=== PATIENT | female | born 1930 | race Caucasian/White ===

== ENCOUNTER 2017-01-18 06:30 | Observation (INO) | payer OTHER ==
[2017-01-18] MEDS ORDERED: diphenhydrAMINE 25 MG CAP PO ONE (06:45)
[2017-01-18] MEDS ORDERED: ASPIRIN EC 325 MG TAB PO ONE ×2 (06:45→07:01)
[2017-01-18] MEDS ORDERED: NS 1,000 ML IV ONE (06:45)
[2017-01-18] MEDS ORDERED: DIAZEPAM 5 MG TAB PO ONE (06:45)
[2017-01-18] MEDS ORDERED: FAMOTIDINE 20 MG TAB PO ONE (06:45)
--- NOTE | 2017-01-18 06:55 | CPEKG ---
Heart Rate: 81 RR Interval: 741 P-R Interval: 164 QRSD Interval: 148 QT Interval: 424 QTC Interval: 493 P [place]: 0 QRS [place]: 251 T Wave [place]: 124 EKG Severity - ABNORMAL ECG - EKG Impression: ATRIAL-SENSED VENTRICULAR-PACED COMPLEXES (UNIPOLAR PACING) Electronically Signed By: Wilton Velasco 18-Jan-2017 18:44:01
[2017-01-18] MEDS ORDERED: FAMOTIDINE 20 MG TAB ONE (07:01)
[2017-01-18 07:12] LABS: % IMMATURE GRANULYOCYTES 0.3 % (0.0-1.1); ABSOLUTE IMMATURE GRANULOCYTES 0.03 10^3/uL (0.00-0.10); ADD DIFF? NO; ADD MORPH? NO; ADD SCAN? NO; ATYPICAL LYMPHOCYTE FLAG 10 (0-99); FRAGMENT RBC FLAG 0 (0-99); HEMATOCRIT 39.3 % (38.0-47.0); HEMOGLOBIN 13.4 g/dL (12.6-16.3); LEFT SHIFT FLG 0 (0-99); LIPEMIA HEMOLYSIS FLAG 90 (0-99); MEAN CELL HEMOGLOBIN 28.4 pg (27.9-34.1); MEAN CELL HEMOGLOBIN CONCENTR. 34.1 g/dL (32.4-36.7); MEAN CELL VOLUME 83.3 fL (81.5-99.8); MEAN PLATELET VOLUME 9.9 fL (8.7-11.7); PLATELET CLUMPS FLAG 10 (0-99); PLATELET COUNT 256 10^3/uL (150-400); RED BLOOD CELL COUNT 4.72 10^6/uL (4.18-5.33); RED CELL DISTRIBUTION WIDTH 13.6 % (11.5-15.2)
[2017-01-18 07:25] LABS: INR 1.09 (0.83-1.16)
[2017-01-18 07:26] LABS: ANION GAP 7 mEq/L (8-16); CALCIUM 9.3 mg/dL (8.5-10.4); CARBON DIOXIDE 29 mEq/l (22-31); CHLORIDE 98 mEq/L (97-110); CHOLESTEROL 114 mg/dL (140-220); CREATININE 0.6 mg/dL (0.6-1.0); GLOMERULAR FILTRATION RATE > 60; GLUCOSE 105 mg/dL (70-100); HIGH DENSITY LIPOPROTEIN 38 mg/dL (40-85); LDL/HDL RATIO 1.45 RATIO (1.00-3.22); LOW DENSITY LIPOPROTEIN 55 mg/dL (80-100); NON-HIGH DENSITY LIPOPROTEIN 76 mg/dL (90-129); POTASSIUM 3.7 mEq/L (3.5-5.2); SODIUM 134 mEq/L (134-144); TRIGLYCERIDE 108 mg/dL (35-135); VERY LOW DENSITY LIPOPROTEINS 21 mg/dL (8-25)
[2017-01-18] MEDS ORDERED: MIDAZOLAM 2 MG/2 ML VIAL ONE (07:44)
[2017-01-18] MEDS ORDERED: IOPAMIDOL (ISOVUE-370) 150 ML BTL IV ONE ×3 (07:44→09:39)
[2017-01-18] MEDS ORDERED: LIDOCAINE 1% 30 ML SDV ONE (07:44)
[2017-01-18] MEDS ORDERED: fentaNYL 100 MCG/2 ML INJ ONE (07:44)
[2017-01-18] MEDS ORDERED: BIVALIRUDIN 250 MG/5 ML VIAL IV ONE (08:41)
--- NOTE | 2017-01-18 09:50 | PDDXCAT ---
Diagnostic Cath Note - . Date: 01/18/17 Intervention: PTCA and ocgr-[id number] implantation in the mid LAD *Procedure 1. selective coronary angiography 2. PTCA and drug-eluting stent (AURORA) implantation in the mid LAD Indication: I was called for interventional consultation following the identification of a 95% mid LAD lesion that has been previously stented with PHILIPP III flow by Dr. Bryan during diagnostic catheterization. Access: Right femoral artery *Materials Left Heart Cath size: 6F Left Heart Cath materials: CLS3.5, Intuition Guide Wire, 3 x 12 mm Emerge balloon, 2.8 x 16 mm Graftmaster stent, 3 x 28 mm Synergy AURORA, 3.25 x 12 mm NC Emerge balloon. *Findings-Selective Coronary Angiography LAD: The mid LAD is ~3 mm in size. There is a 95% mid LAD in-stent restenosis with PHILIPP III flow. *Intervention A 6 Cuban CCS3.5 guiding catheter was used for guide catheter support. A 0.014 " Intuition Guide Wire was advanced across the mid LAD under direct fluoroscopic and angiographic guidance. As the wire was advanced it exited the vessel at the LAD diagonal junction with associated staining of the muscle. This did not become free flowing into the pericardium. A 3 x 12 mm Emerge balloon was used to pre-dilate the mid LAD lesion in question under a maximum of 15 theodore of pressure with several prolonged inflations. A 3 x 28 mm Synergy AURORA was exchanged for the balloon and successfully deployed under 16 [place]odore of pressure. The stent was removed and a 3.25 x 12 mm NC Emerge Balloon was used to post-dilate the stent several times under a maximum of 18 theodore of pressure. Status post PTCA and stent implantation there were excellent angiographic results with 5% residual stenosis and PHILIPP III flow to the distal vessel. *Summary Complications: There was a wire perforation in the intramuscular layer of the mid LAD upon wire insertion. This was sealed with a series of prolonged balloon inflations. A 2.8 by 16 Graftmaster stent was made ready for use in case the prolonged balloon inflations did not seal the wire perforation. A stat intraoperative echocardiogram was performed with trivial pericardial effusion and no evidence of tamponade physiology. There was no evidence of contrast communication in subsequent angiographic injections. We ultimately decided to use a drug eluting stent in the wire perforation zone: 1. In stent restenosis was the indication for stenting in the first place. 2.) Both the diagonal and septal branches exited from the same region. Use of a covered stent would have closed the side branches and would not have prevented in stent restenosis. Estimated blood loss: <100ml Closure method: Arteriotomy repair Assessment/Conclusion: 1. [place] vessel coronary artery disease including 95% mid LAD in-stent restenosis with PHILIPP III flow. This was repaired with PTCA and drug-eluting- stent implantation as outlined above. There was 5% residual stenosis with PHILIPP III flow angiographically. The patient was placed on Plavix because of the need for Pradaxa given the chronic atrial fibrillation. 2. There was a wire perforation in the intramuscular layer of the mid LAD upon wire insertion. This was successfully sealed with prolonged balloon inflations. Intraoperative echocardiography showed trivial pericardial effusion with no evidence of tamponade. I have ordered limited echocardiogram to be performed in the morning to rule out pericardial effusion prior to the patient's discharge. Patient Problems: Problems Problem Status Onset Closed intratrochanteric fracture of left femur Acute Fall Acute COPD (chronic obstructive pulmonary disease) Acute
[2017-01-18] MEDS ORDERED: CLOPIDOGREL BISULFATE 75 MG TAB ONE ×2 (09:52→09:53)
[2017-01-18] MEDS ORDERED: CLOPIDOGREL BISULFATE 75 MG TAB PO ONE (10:13)
[2017-01-18] MEDS ORDERED: ATROPINE SULFATE 1 MG/10 ML SYR IVP PRN (10:13)
[2017-01-18] MEDS ORDERED: NITROGLYCERIN 0.4 MG BTL SL PRN (10:13)
[2017-01-18] MEDS ORDERED: LORazepam 2 MG/ML INJ IVP PRN (10:13)
[2017-01-18] MEDS ORDERED: TEMAZEPAM 15 MG CAP PO PRN (10:13)
[2017-01-18] MEDS ORDERED: ACETAMINOPHEN 325 MG TAB PO PRN (10:13)
[2017-01-18] MEDS ORDERED: NS 1,000 ML IV SCH (10:15)
--- NOTE | 2017-01-18 10:20 | CPEKG ---
Heart Rate: 70 RR Interval: 857 P-R Interval: 163 QRSD Interval: 154 QT Interval: 336 QTC Interval: 363 P [place]: 81 QRS [place]: -89 T Wave [place]: 133 EKG Severity - ABNORMAL ECG - EKG Impression: ATRIAL-SENSED VENTRICULAR-PACED RHYTHM Electronically Signed By: Wilton Velasco 18-Jan-2017 18:40:39
--- NOTE | 2017-01-18 10:44 | ECHO ---
[id number] + + [address] : : [place] [address] : : [phone] + + Adult Echocardiographic Report + + :Name: Yahir HOFFMANN Date: 01/18/2017 09:51 AM : : Hospital Admission Number: [id number] Bettye n: medical laboratory manager: :: 1930 Gender: Female : :Age: 86 yrs Race: WH,White : :Reason For Study: Eval for pericardial effusion : :History: Cath : + + Left Ventricle Left ventricular systolic function is low normal. Ejection Fraction = 50%%. [place] There is a catheter/pacemaker lead seen in the right atrium. Mitral Valve The mitral valve is normal in structure and function. Tricuspid Valve The tricuspid valve is normal in structure and function. Aortic Valve The aortic valve is trileaflet. Pericardium/Pleural trivial pericardial effusion. Conclusion This is a limited echo to evaluate for pericardial effusion during a heart catherization. trivial pericardial effusion. Left ventricular systolic function is low normal. Ejection Fraction = 50%%. Final Reading Physician: Tom Bryan electronically signed on 01/18/2017 10:43 AM Ordering Physician: Tom Bryan Referring Physician: Wilton Velasco MD Performed By: Frankie Olivia RDCS
--- NOTE | 2017-01-18 11:17 | GOP ---
[f rep st] OPERATIVE REPORT DATE OF OPERATION: 01/18/2017 SURGEON: Tom Bryan MD PREOPERATIVE DIAGNOSIS: POSTOPERATIVE DIAGNOSIS: PROCEDURE PERFORMED: Diagnostic left heart catheterization. FINDINGS: 1. Left main: Normal size and caliber. It bifurcates into the left anterior descending and left c ircumflex coronary artery. 2. Left anterior descending artery: There was evidence of 20% narrowing in the very proximal segme nt of the vessel. Patent stent to the LAD. There was a 90% stenosis just distal to the LAD stent a t the level of the first septal and diagonal branch. There were mild luminal irregularities through out the remainder of the LAD. 3. Circumflex artery demonstrated patent previous proximal circumflex stent. The circumflex vessel was a large-caliber, dominant vessel with a large 1st obtuse marginal branch. There were mild khoa nal irregularities within the circumflex vessel. There was no evidence of flow-limiting coronary di sease. 4. The right coronary artery was a small, nondominant vessel. There were mild luminal irregulariti es in the proximal and midportion of the vessel with no flow-limiting stenosis. 5. Left ventriculogram demonstrated mild anterior wall hypokinesis with an LVEF of approximately 50 %. 6. Right common femoral artery angiography demonstrated high bifurcation off the iliac vessel. No trauma to the iliac vessel. Would not recommend device closure. 1. Hemodynamics: LVEDP 17. No evidence of aortic valve gradient. DESCRIPTION OF PROCEDURE: After informed consent was obtained, the patient was taken to the cardiac catheterization lab where she was prepped and draped in a sterile fashion. Prior to the procedure, I had confirmed with her that she had been off Pradaxa for over 48 hours. Using 1% lidocai ne, the right groin was anesthetized. Using the modified Seldinger technique, a 6-Japanese catheter w as placed in the right common femoral artery without complication. The patient tolerated the proced ure well. There were no postoperative complications. A JL4 catheter was used to take images of the left coronary anatomy in multiple projections. The JL 4 catheter was exchanged over a guidewire for a JR4 catheter. The JR4 catheter was used to take steff ges of the right coronary anatomy in multiple angles. The JR4 catheter was removed over guidewire. An angled pigtail catheter was used to cross the aorti c valve. Left ventriculogram was performed. LVEDP was assessed. Aortic valve gradient was assesse d on pullback. INDICATION FOR PROCEDURE: The patient is an 86-year-old female with known history of coronary arter y disease with previous PCI to the LAD and circumflex vessel, who has been in the office with compla ints of increasing shortness of breath, dyspnea, and exertional intolerance and fatigue. Nuclear st ress test demonstrated anterior as well as inferior ischemia with mildly reduced LVEF of 50%. In th e setting of ongoing symptoms, the decision was made to pursue diagnostic left heart catheterization . CONCLUSION: Severe single-vessel coronary artery disease to the proximal to midportion of the LAD w ith severe side branch disease within the first diagonal branch. PLAN: I reviewed these images with my interventional colleague, Dr. Velasco. We will plan for inter vention to the LAD. /[id number]/MODL
[2017-01-19 04:38] LABS: % IMMATURE GRANULYOCYTES 0.2 % (0.0-1.1); ABSOLUTE IMMATURE GRANULOCYTES 0.02 10^3/uL (0.00-0.10); ADD DIFF? NO; ADD MORPH? NO; ADD SCAN? NO; ATYPICAL LYMPHOCYTE FLAG 0 (0-99); FRAGMENT RBC FLAG 0 (0-99); HEMATOCRIT 36.5 % (38.0-47.0); HEMOGLOBIN 12.2 g/dL (12.6-16.3); LEFT SHIFT FLG 0 (0-99); LIPEMIA HEMOLYSIS FLAG 80 (0-99); MEAN CELL HEMOGLOBIN 28.9 pg (27.9-34.1); MEAN CELL HEMOGLOBIN CONCENTR. 33.4 g/dL (32.4-36.7); MEAN CELL VOLUME 86.5 fL (81.5-99.8); MEAN PLATELET VOLUME 10.4 fL (8.7-11.7); PLATELET CLUMPS FLAG 30 (0-99); PLATELET COUNT 215 10^3/uL (150-400); RED BLOOD CELL COUNT 4.22 10^6/uL (4.18-5.33); RED CELL DISTRIBUTION WIDTH 13.7 % (11.5-15.2)
[2017-01-19 05:47] LABS: ALBUMIN 3.1 g/dL (3.5-5.0); ANION GAP 6 mEq/L (8-16); ASPARTATE AMINOTRANSFERASE 36 IU/L (14-46); BILIRUBIN,TOTAL 0.5 mg/dL (0.1-1.4); CALCIUM 8.8 mg/dL (8.5-10.4); CARBON DIOXIDE 28 mEq/l (22-31); CHLORIDE 98 mEq/L (97-110); CREATININE 0.5 mg/dL (0.6-1.0); GLOMERULAR FILTRATION RATE > 60; GLUCOSE 88 mg/dL (70-100); LACTATE DEHYDROGENASE 576 IU/L (313-618); MAGNESIUM 2.1 mg/dL (1.6-2.3); POTASSIUM 3.9 mEq/L (3.5-5.2); SODIUM 132 mEq/L (134-144)
[2017-01-19 08:25] VITALS: BP 114/60; TEMP 97.7; O2SAT 92
[2017-01-19] MEDS ORDERED: ASPIRIN EC 325 MG TAB PO SCH (09:00)
[2017-01-19] MEDS ORDERED: PANTOPRAZOLE SODIUM 40 MG TAB PO SCH (09:00)
[2017-01-19] MEDS ORDERED: CLOPIDOGREL BISULFATE 75 MG TAB PO SCH (09:00)
--- NOTE | 2017-01-19 09:07 | CPEKG ---
Heart Rate: 78 RR Interval: 769 P-R Interval: 165 QRSD Interval: 170 QT Interval: 410 QTC Interval: 468 P [place]: 86 QRS [place]: 186 T Wave [place]: 110 EKG Severity - ABNORMAL ECG - EKG Impression: ATRIAL-SENSED VENTRICULAR-PACED RHYTHM Electronically Signed By: Wilton Velasco 19-Jan-2017 14:25:49
[2017-01-19] MEDS ORDERED: ALBUTEROL 60 PUFFS/8 GM MDI IH PRN ×2 (09:45→10:04)
[2017-01-19] MEDS ORDERED: FUROSEMIDE 20 MG TAB PO SCH (09:45)
[2017-01-19] MEDS ORDERED: BUDESONIDE/FORMOTEROL 160/4.5 60 PUFFS/MDI IH SCH (09:45)
[2017-01-19] MEDS ORDERED: ATORVASTATIN CALCIUM 20 MG TAB PO SCH (09:45)
[2017-01-19] MEDS ORDERED: ASPIRIN 81 MG CHEWABLE TAB PO SCH (09:45)
[2017-01-19] MEDS ORDERED: NON-FORMULARY NEW DRUG (Omeprazole [Prilosec 20 Mg] 20 MG) PO SCH (09:45)
[2017-01-19] MEDS ORDERED: ERGOCALCIFEROL 50,000 I.UNIT CAP PO SCH ×2 (09:45→10:15)
[2017-01-19 12:00] VITALS: RESP 18
--- NOTE | 2017-01-19 12:36 | PDIAF ---
- Diagnosis Diagnosis: CAD Stent to LAD 01/18/17 Code Status: Full Code - Medication Management Discharge Medications: Medications to Continue on Transfer Albuterol [Proventil Inhaler HFA (*)] 2 puffs IH Q4-6PRN PRN 01/18/17 [Last Taken Unknown] Aspirin [Aspirin 81mg (*)] 81 mg PO DAILY 01/18/17 [Last Taken Unknown] Atorvastatin Calcium [Lipitor 20 mg (*)] 20 mg PO DAILY 01/18/17 [Last Taken Unknown] Budesonide/Formoterol 160/4.5 [Symbicort 160-4.5 Mcg Inh (*)] 1 puffs IH BID 04/29 [Last Taken Unknown] C/E/Zn/Cu/OM3/DHA/EPA/LUT/ZEAX [Preservision Areds 2 Softgel] 1 each PO BID 04/29 [Last Taken Unknown] Cyanocobalamin [Vitamin B12 (*)] 1,000 mcg PO DAILY 01/18/17 [Last Taken Unknown ] Donepezil HCl [Aricept 5 MG (*)] 5 mg PO HS 01/18/17 [Last Taken Unknown] Ergocalciferol [Vitamin D2 (*)] 50,000 unit PO Q7D 01/18/17 [Last Taken Unknown] Furosemide [Lasix 20 MG (*)] 20 mg PO DAILY 01/18/17 [Last Taken Unknown] Omeprazole [Prilosec 20 mg] 20 mg PO DAILY 01/18/17 [Last Taken Unknown] Acetaminophen [Tylenol 325mg (*)] 650 mg PO Q4HRS PRN #0 tab 01/19/17 [Last Taken Unknown] Clopidogrel Bisulfate [Plavix (*)] 75 mg PO DAILY #30 tab 01/19/17 [Last Taken Unknown] Nitroglycerin [Nitrostat 0.4 mg (*)] 0.4 mg SL ONCE PRN #1 btl 01/19/17 [Last Taken Unknown] Discharge Medications: Refer to the Discharge Home Medication list for PRN reason. - Orders Services needed: Home Care (Needs in home PT), Physical Therapy Home Care Face to Face: I certify that this patient was under my care and that I had the required [id number] encounter meeting the encounter requirements on the discharge day. My findings support the fact that the patient is homebound as defined in CMS Chapter 7 Medicare Benefits Manual 30.1.1, The condition of the patient is such that there exists a normal inability to leave home and consequently, leaving home would require a considerable and taxing effort. Diet Recommendation: cardiac -low fat low salt Diet Texture: Regular Texture Diet Additional: Right Groin cath site precautions. See Written Home Instructions sheet. No heavy lifting, pushing, or pulling greater than 10 pounds for one week. Dressing can come off this evening in shower. No ointments or dressing to site. Keep site clean with soap and water. OK to walk one block away and back outdoors today, and tomorrw and then can advance as tolerated, gradually. - Follow Up Care Current Providers and Referrals: Ramandeep Elizabeth MD [Primary Care Provider] - Tom Bryan MD [Medical Doctor] - 01/26/17 4:00 pm
[2017-01-19 14:48] VITALS: PULSE 72
--- NOTE | 2017-01-19 17:26 | GDS ---
[f rep st] DISCHARGE SUMMARY ADMISSION DIAGNOSES: 1. Positive nuclear stress test. 2. Planned cardiac angiogram with possible percutaneous coronary intervention. DISCHARGE DIAGNOSES: 1. Status post cardiac angiogram with percutaneous coronary intervention of the left anterior desce nding. 2. Coronary artery disease. 3. History of atrial fibrillation. 4. Pacemaker in situ. COURSE OF HOSPITALIZATION: This nice lady was brought to the cardiac chemical laboratory assistant on January 18, 2017, by he primary crude tester Dr. Tom Bryan for cardiac angiogram post nuclear stress test that was positi ve for cardiac ischemia. She has had previous stents to the LAD. She has a history of chronic atri al fibrillation and pacemaker placement. She did tolerate the procedure well. She has no complaint s of chest pain or shortness of breath. She has been up ambulating in the room to the bathroom. Oc cupational Therapy did come in and evaluate, feeling that she would be fine to go home with assistan ce of her family. Physical Therapy further evaluated her, and felt that she would benefit from home care with physical therapy. This has been arranged for Home Care to be involved. She has no compl aints. Her monitor shows AV paced rhythm with underlying atrial fibrillation. Her groin site is in tact with no bleeding, induration, or discomfort. At this time, she is currently stable for dischar ge with home care physical therapy. ALLERGIES: She has no known allergies. MEDICATIONS: She will go home on Prilosec 20 mg daily. Pradaxa is on hold until her followup appoi ntment in 1 week. Lipitor 20 mg daily, vitamin D2 50,000 units every 7 days, Aricept 5 mg at bedtim e, vitamin B12 1000 mcg daily, Symbicort 1 puff inhaled twice daily, albuterol 2 puffs inhaled every 4 hours as needed, PreserVision 1 twice daily, furosemide 20 mg daily, Tylenol 325 mg daily every 4 hours as needed for discomfort, Plavix 75 mg daily, nitroglycerin 0.4 mg sublingual as needed for c hest pain 1 tablet sublingual 1 tablet every 5 minutes x3. PHYSICAL EXAM: VITAL SIGNS: On day of discharge, blood pressure 114/60, heart rate 78, oxygen satu ration 92%. Temperature 36.5 Celsius. 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 CARDIAC: Heart rate is regular. No murmurs, rubs, or gallops. LUNGS: Sounds are clear to auscult ation. No wheezes, rales, or rhonchi. ABDOMEN: Right groin site is intact with no bleeding, indur ation or discomfort. Minimal ecchymosis is noted. There is no hematoma noted. EXTREMITIES: Pulse s, femoral 2+. Peripheral pulses 2+ bilaterally. LAB: On 01/19/2017, white count 8.96, hemoglobin 12.2, hematocrit 36.5. Creatinine 0.5, estimated GFR greater than 60, total cholesterol 114, triglycerides 108, LDL 55, HDL 38. REPORTS: On January 18, 2017, she was taken to the cardiac chemical laboratory assistant by Dr. Tom Bryan for left heart cat heterization due to a positive nuclear stress test showing ischemia. Findings: 1. Left anterior descending artery: Evidence of 20% narrowing in the very proximal segment of the vessel, patent stent to the LAD. There was 90% stenosis just distal to the LAD stent at the level o f the 1st septal and diagonal branch. Mild luminal irregularities throughout the remainder of the L AD. 2. Circumflex artery showed patent previous proximal circumflex stent, mild luminal irregularities within the circumflex vessel. No flow-limiting coronary artery disease. 3. Right coronary artery showed mild luminal irregularities in the proximal and midportion of the v essel with no flow-limiting stenosis. 4. Left ventriculogram showed mild anterior wall hypokinesis with a LVEF of approximately 50%. 5. Right common femoral artery demonstrated high bifurcation of the iliac vessel. 6. There was no evidence of aortic valve gradient. Conclusion Of Angiogram: Severe single-vessel coronary artery disease to the proximal to midportion of the LAD with severe side branch disease within the 1st diagonal branch. Plan: Dr. Wilton Velasco was asked to intervene for intervention of the LAD. Diagnostic Catheterization Note and Intervention: On 01/18/2017, Dr. Wilton Velasco intervened, perfo rming PTCA and drug-eluting stent implantation in the mid-LAD. Procedure: 1. Selective coronary angiography. 2. PTCA and drug-eluting stent implantation in the mid-LAD. Indication: Dr. Tom Bryan had identified a 95% mid-LAD lesion that had been previously stented, connolly ccessful PTCA and stent implantation with excellent angiographic results with 5% residual stenosis a nd PHILIPP-3 flow to the distal vessel. Complications: There was a wire perforation in the intramuscular layer of the mid-LAD upon wire ins ertion. This was sealed with a series of prolonged balloon inflations. A stat intraoperative echoc ardiogram was performed with trivial pericardial effusion, and no evidence of tamponade physiology. There was no evidence of contrast communication in subsequent angiographic injections. Ultimately, it was decided to use a drug-eluting stent in the wire perforation zone: 1. In-stent re-stenosis was the indication for stenting in the first place. a. Both the diagonal and septal branches exited from the same region. The use of a covered stent w ould have closed the side branches and would not have prevented in-stent re-stenosis. Patient was p laced on Plavix because of the need for Pradaxa given her chronic atrial fibrillation. 2. There was a wire perforation in the intramuscular layer of the mid-LAD upon wire insertion. Thi s was successfully sealed with prolonged balloon inflations. Intraoperative echocardiogram showed t rivial pericardial effusion with no evidence of tamponade. Limited echocardiogram to be performed i n the morning prior to discharge. Echocardiogram on 01/19/2017 was done and read by Dr. Wilton Velsaco, showing trivial pericardial effu nanda. Occupational Therapy and Physical Therapy evaluated her prior to discharge. Physical Therapy felt s he would benefit from in-home physical therapy treatment. This was arranged. Both she and her husb and were receptive to this plan. DISCHARGE PLAN: 1. Groin care instructions were given, both verbally and written. She understands no heavy lifting , pushing, pulling greater than 10 pounds for 1 week. She will splint her groin site for coughing, sneezing, or bowel movements. 2. Should she have bleeding from the groin site, she will hold continuous pressure, and go to the [facility] emergency room. 3. She will follow up with Dr. Bryan on January 26 at [facility] at 4 p.m. 4. She understands that she will not take Pradaxa until she sees Dr. Bryan in 1 week. She understan ds Plavix, and the importance of taking it every day without fail, along with an 81 mg aspirin. 5. Should she have any concerns or questions, she will call [facility] to talk to Dr. Julius franklin. At this time, she currently is stable for discharge. /[id number]/MODL
--- NOTE | 2017-01-19 17:41 | ECHO ---
[id number] + + [address] : : [place] [address] : : [phone] + + Adult Echocardiographic Report + + :Name: JASON HOFFMANN Study Date: 01/19/2017 10:43 AM : : Hospital Admission Number: [id number] : :: 1930 Gender: Female : :Age: 86 yrs Race: WH,White : :Reason For Study: Eval for pericardial effusion : + + Pericardium/Pleural trivial pericardial effusion. There is no pleural effusion. Conclusion This is a limited echo to evaluate for a pericardial effusion. There is no pleural effusion. trivial pericardial effusion. Similar findings compared with 01/18/2017 Final Reading Physician: Dr Ailyn Pichardo electronically signed on 01/19/2017 05:39 PM Ordering Physician: Wilton Velasco MD Performed By: Frankie Olivia RDCS
[2017-01-19] MEDS ORDERED: DONEPEZIL HCL 5 MG TAB PO SCH (21:00)
[2017-01-19] MEDS ORDERED: PRESERVISION AREDS2 FORMULA EYE VIT 1 EACH PO SCH (21:00)
[2017-01-20] MEDS ORDERED: CYANO/VITAMIN B12 1000 MCG TAB PO SCH (09:00)
[2017-01-22 11:47] LABS: HEMOGLOBIN A1C 6.3 % (4.0-6.0)
== END 2017-01-19 13:27 | disposition home health service (06) ==
LOC: FCATH 06:30 → F2W 10:13
PROVIDERS: ADMIT Internal Medicine Cardiovascular Disease; ATTEND Internal Medicine Cardiovascular Disease
PROC: 027034Z Dilation of Coronary Artery, One Artery with Drug-eluting Intraluminal Device, Percutaneous Approach (ICD-10-PCS; principal; 2017-01-18)
PROC: B2111ZZ Fluoroscopy of Multiple Coronary Arteries using Low Osmolar Contrast (ICD-10-PCS; 2017-01-18)
PROC: B2151ZZ Fluoroscopy of Left Heart using Low Osmolar Contrast (ICD-10-PCS; 2017-01-18)
PROC: 4A023N7 Measurement of Cardiac Sampling and Pressure, Left Heart, Percutaneous Approach (ICD-10-PCS; 2017-01-18)
DX: T82.857A Stenosis of other cardiac prosthetic devices, implants and grafts, initial encounter (principal); I25.10 Atherosclerotic heart disease of native coronary artery without angina pectoris; I42.9 Cardiomyopathy, unspecified; E78.00 Pure hypercholesterolemia, unspecified; E11.9 Type 2 diabetes mellitus without complications; Z95.0 Presence of cardiac pacemaker
CPT/HCPCS: 93005; 93308; 93458; 97161; 97165; C1725; C1769; C1874; C1887; C9600; G8978; G8979; G8980; G8987; G8988; G8989; J0583; J1644; J2060; J2250; J3010; Q9967; J0461